=== PATIENT | female | born 1965 | race Caucasian/White ===

== ENCOUNTER 2018-11-30 11:13 | Day surgery (SDC) | payer BC ==
[~2018-11-30 11:13] MED LIST: LIDOCAINE HCL 1% MPF 30 SOL ONE; PROPOFOL 500 MG/50 ML EMU IV ONE
[2018-11-30 12:28] VITALS: O2SAT 98
[2018-11-30 12:47] VITALS: BP 135/82; PULSE 86; RESP 18; TEMP 97.1
== END 2018-11-30 13:24 | disposition home or self-care (01) ==
LOC: SURG 11:13
PROVIDERS: ATTEND Surgery
DX: Z12.11 Encounter for screening for malignant neoplasm of colon (principal); K57.32 Diverticulitis of large intestine without perforation or abscess without bleeding
CPT/HCPCS: J2001; J2704